=== PATIENT | male | born 1955 | race Hispanic/Latino ===

== ENCOUNTER 2018-01-16 10:56 | Emergency (ER) | payer MEDICAID, OTHER ==
[2018-01-16 11:31] VITALS: BMI 19.8
--- NOTE | 2018-01-16 11:41 | ED PDOC ---
Arrival/HPI - General Time Seen by Provider: 01/16/18 11:06 Historian: Patient, Police - History of Present Illness Narrative History of Present Illness (Text): 01/16/18 11:30 62 year old male, with no significant past medical history, was brought to the Emergency department by [facility] for medical clearance today. As per [facility], patient was asked to evacuate his apartment due to failure to pay rent however he was noncompliant with the notice. When [facility] arrived to escort patient out of the apartment, the patient appeared weak and frail and thus was brought to the ED for medical evaluation. Upon arrival to Emergency department, patient appears weak, cachectic and will not answer questions directly. Patient appeared to wear lose clothes indicating loss of weight from baseline. When asked about his history, patient informs buying new clothes 3 years ago and visiting a PMD 16 years ago. Patient currently denies any medical or psychiatric complaints. Patient denies any fever, chills, nausea, vomiting, diarrhea, abdominal pain, chest pain, shortness of breath or any other complaints. Patient denies any suicidal or homicidal ideation. Time/Duration: Prior to Arrival Symptom Onset: Gradual Activities at Onset: Light Context: Home Past Medical History - Provider Review Nursing Documentation Reviewed: Yes Family/Social History - Physician Review Nursing Documentation Reviewed: Yes Family/Social History: No Known Family HX Allergies/Home Meds Allergies/Adverse Reactions: Allergies No Known Allergies Allergy (Verified 01/16/18 12:32) Home Medications: Home Meds Medication Instructions Recorded Confirmed No Known Home Med 01/16/18 01/16/18 Review of Systems - Physician Review All systems were reviewed & negative as marked: Yes - Review of Systems Constitutional: Normal. absent: Fevers Eyes: Normal ENT: Normal Respiratory: Normal. absent: SOB Cardiovascular: Normal. absent: Chest Pain Gastrointestinal: Normal. absent: Abdominal Pain, Diarrhea, Nausea, Vomiting Genitourinary Male: Normal Musculoskeletal: Normal Skin: Normal Neurological: Normal Endocrine: Normal Hemo/Lymphatic: Normal Psychiatric: Normal Physical Exam Appearance: Positive for: Cachectic Pain Distress: None - Systems Exam Head: Present: Atraumatic, Normocephalic Pupils: Present: PERRL Extroacular Muscles: Present: EOMI Conjunctiva: Present: Normal Mouth: Present: Moist Mucous Membranes Neck: Present: Normal Range of Motion Respiratory/Chest: Present: Clear to Auscultation, Good Air Exchange. No: Respiratory Distress, Accessory Muscle Use Cardiovascular: Present: Regular Rate and Rhythm, Normal S1, S2. No: Murmurs Abdomen: No: Tenderness, Distention, Peritoneal Signs Back: Present: Normal Inspection Upper Extremity: Present: Normal Inspection. No: Cyanosis, Edema Lower Extremity: Present: Normal Inspection. No: Edema Neurological: Present: GCS=15, CN II-XII Intact, Speech Normal Skin: Present: Warm, Dry, Normal Color. No: Rashes Psychiatric: Present: Alert, Oriented x 3, Normal Insight, Normal Concentration Medical Decision Making ED Course and Treatment: 01/16/18 11:42 Impression: 62 year old male presents to the Emergency department for medical clearance. Plan: -- CT of Head -- Labs -- EKG -- Chest X-ray -- PES Evaluation -- Urinalysis -- Reassess and disposition Progress Notes: 01/16/18 11:57 CT of head reviewed by radiologist, shows: FINDINGS: HEMORRHAGE: No intracranial hemorrhage. BRAIN: No mass effect or edema. No atrophy or chronic microvascular ischemic changes. VENTRICLES: Unremarkable. No hydrocephalus. CALVARIUM: Unremarkable. PARANASAL SINUSES: Unremarkable as visualized. No significant inflammatory changes. MASTOID AIR CELLS: Unremarkable as visualized. No inflammatory changes. OTHER FINDINGS: None. IMPRESSION: No acute findings 01/16/18 13:02 Chest X-ray reviewed by radiologist, shows no active disease. 01/16/18 16:[address] to stay with his restorationism tonight and will get his new apartment tomorrow. Re-evaluation Time: 16:29 (Medically and psychologically cleared!) Reassessment Condition: Re-examined - Lab Interpretations Lab Results: 01/16/18 12:40 01/16/18 12:40 Lab Results 01/16/18 16:06: pO2 22 L, VBG pH 7.31 L, VBG pCO2 52.0, VBG HCO3 26.2, VBG Total CO2 27.8, VBG O2 Sat (Calc) 50.5, VBG Base Excess -0.8 L, VBG Potassium 4.5, Sodium 137.0, Chloride 107.0, Glucose 164 H, Lactate 1.2, FiO2 21.0, Venous Blood Potassium 4.5 01/16/18 13:20: Ammonia < 9 L 01/16/18 12:40: pO2 35, VBG pH 7.30 L, VBG pCO2 46.0, VBG HCO3 22.6, VBG Total CO2 24.0, VBG O2 Sat (Calc) 71.5 H, VBG Base Excess -4.0 L, VBG Potassium 4.8, Sodium 136.0, Chloride 101.0, Glucose 166 H, Lactate 2.3 H, FiO2 21.0, Venous Blood Potassium 4.8 01/16/18 12:40: Alcohol, Quantitative < 10 01/16/18 12:40: Sodium 141, Chloride 99, Potassium 4.9, Carbon Dioxide 22, Anion Gap 25 H, BUN 14, Creatinine 0.8, Est GFR ( Amer) > 60, Est GFR ( Non-Af Amer) > 60, Random Glucose 151 H, Calcium 9.8, Total Bilirubin 0.8, Direct Bilirubin 0.2, AST 12 L, ALT 15, Alkaline Phosphatase 58, Lactate Dehydrogenase 265 L, Total Creatine Kinase 31 L, Troponin I < 0.01, Total Protein 7.5, Albumin 4.6, Globulin 2.9, Albumin/Globulin Ratio 1.6 01/16/18 12:40: PT 12.7 H, INR 1.07 01/16/18 12:40: WBC 7.7, RBC 4.75, Hgb 15.0, Hct 43.4, MCV 91.4, MCH 31.6, MCHC 34.6, RDW 13.4, Plt Count 284, MPV 10.3, Gran % 73.2 H, Lymph % (Auto) 17.6 L, [place] % (Auto) 8.6 H, Eos % (Auto) 0.1 L, Baso % (Auto) 0.5, Gran # 5.61, Lymph # (Auto) 1.4, [place] # (Auto) 0.7 H, Eos # (Auto) 0.0, Baso # (Auto) 0.04 - RAD Interpretation Radiology Orders: 01/16/18 11:27 HEAD W/O CONTRAST [CT] Stat CHEST PORTABLE [RAD] Stat Engineering Teacher: Radiologist - Medication Orders Current Medication Orders: Discontinued Medications Sodium Chloride (Sodium Chloride 0.9%) 1,000 mls @ 999 mls/hr IV .Q1H1M STA Stop: 01/16/18 14:10 Last Admin: 01/16/18 13:17 Dose: 999 mls/hr eMAR Start Stop Document 01/16/18 13:17 OCS (Rec: 01/16/18 13:17 OCS [email or web address] Intravenous Solution Start Date 01/16/18 Start Time 13:17 End Date 01/16/18 End time 14:17 Total Infusion Time 60 Sodium Chloride (Sodium Chloride 0.9%) 2,000 mls @ 999 mls/hr IV .Q2H1M STA Stop: 01/16/18 15:14 Last Admin: 01/16/18 13:17 Dose: 999 mls/hr eMAR Start Stop Document 01/16/18 13:17 OCS (Rec: 01/16/18 13:17 [facility]CS [email or web address] Intravenous Solution Start Date 01/16/18 Start Time 13:17 End Date 01/16/18 End time 14:17 Total Infusion Time 60 - Scribe Statement The provider has reviewed the documentation as recorded by the Scribe Buffy Gonzalez. All medical record entries made by the Scribe were at my direction and personally dictated by me. I have reviewed the chart and agree that the record accurately reflects my personal performance of the history, physical exam, medical decision making, and the department course for this patient. I have also personally directed, reviewed, and agree with the discharge instructions and disposition. Disposition/Present on Arrival - Present on Arrival Any Indicators Present on Arrival: No History of DVT/PE: No History of Uncontrolled Diabetes: No Urinary Catheter: No History of Decub. Ulcer: No History Surgical Site Infection Following: None - Disposition Have Diagnosis and Disposition been Completed?: Yes Diagnosis: Debility, unspecified Disposition: HOME/ ROUTINE Disposition Time: 16:34 Patient Plan: Discharge Condition: GOOD Discharge Instructions (ExitCare): Generalized Weakness (DC) Additional Instructions: Mr Harris - Please go directly to your restorationism. Return to us if any problems. Angel- Dr. Jonatan Samano
--- NOTE | 2018-01-16 11:51 | CT ---
PROCEDURE: CT HEAD WITHOUT CONTRAST. HISTORY: MEDICAL CLEARANCE COMPARISON: None available. TECHNIQUE: Axial computed tomography images were obtained through the head/brain without intravenous contrast. Radiation dose: Total exam DLP = 938 mGy-cm. This CT exam was performed using one or more of the following dose reduction techniques: Automated exposure control, adjustment of the mA and/or kV according to patient size, and/or use of iterative reconstruction technique. FINDINGS: HEMORRHAGE: No intracranial hemorrhage. BRAIN: No mass effect or edema. No atrophy or chronic microvascular ischemic changes. VENTRICLES: Unremarkable. No hydrocephalus. CALVARIUM: Unremarkable. PARANASAL SINUSES: Unremarkable as visualized. No significant inflammatory changes. MASTOID AIR CELLS: Unremarkable as visualized. No inflammatory changes. OTHER FINDINGS: None. IMPRESSION: No acute findings
--- NOTE | 2018-01-16 12:41 | RAD ---
HISTORY: MEDICAL CLEARANCE COMPARISON: No prior. FINDINGS: LUNGS: No active pulmonary disease. PLEURA: No significant pleural effusion identified, no pneumothorax apparent. CARDIOVASCULAR: Normal. OSSEOUS STRUCTURES: No significant abnormalities. VISUALIZED UPPER ABDOMEN: Normal. OTHER FINDINGS: None. IMPRESSION: No active disease.
[2018-01-16 13:00] LABS: VENOUS BLOOD GAS PO2 35 mm/Hg (30-55)
[2018-01-16 13:03] LABS: BASO # 0.04 K/mm3 (0.0-2.0); BASO % 0.5 % (0.0-3.0); EOS % 0.1 % (1.5-5.0); GRAN # 5.61 (1.4-6.5); GRAN % 73.2 % (50.0-68.0); LYMPH # 1.4 (1.2-3.4); LYMPH % 17.6 % (22.0-35.0); MEAN CELL VOLUME 91.4 fl (80.0-105.0); MEAN CORPUSCULAR HEMOGLOBIN 31.6 pg (25.0-35.0); MEAN CORPUSCULAR HGB CONC 34.6 g/dl (31.0-37.0); MEAN PLATELET VOLUME 10.3 fl (7.0-11.0); MONO # 0.7 (0.1-0.6); MONO % 8.6 % (1.0-6.0); RBC 4.75 10^6/uL (3.5-6.1); RED CELL DISTRIBUTION WIDTH 13.4 % (11.5-14.5); WHITE BLOOD COUNT 7.7 10^3/ul (4.5-11.0)
[2018-01-16 13:05] LABS: INR 1.07 (0.93-1.08); PROTHROMBIN TIME 12.7 SECONDS (9.4-12.5)
[2018-01-16 13:10] LABS: ALB/GLOB RATIO 1.6 (1.1-1.8); ALBUMIN 4.6 g/dL (3.0-4.8); ALT/SGPT 15 U/L (7-56); AST/SGOT 12 U/L (17-59); BILIRUBIN,DIRECT 0.2 mg/dL (0.0-0.4); BLOOD UREA NITROGEN 14 mg/dL (7-21); CALCIUM 9.8 mg/dL (8.4-10.5); GFR AFRICAN-AMERICAN > 60; GFR NON-AFRICAN AMERICAN > 60
[2018-01-16] MEDS ORDERED: Sodium Chloride 0.9% 1,000 ML IV STA (13:10)
[2018-01-16] MEDS ORDERED: Sodium Chloride 0.9% 2,000 ML IV STA (13:14)
[2018-01-16 13:20] LABS: TROPONIN I < 0.01 ng/mL
[2018-01-16 16:15] LABS: VENOUS BLOOD GAS BASE EXCESS -0.8 mmol/L (0.0-2.0); VENOUS BLOOD GAS PO2 22 mm/Hg (30-55); VENOUS BLOOD PH 7.31 (7.32-7.43)
--- NOTE | 2018-01-16 16:23 | CARD ---
APPROVED REPORT EKG Measurement Heart [id number] <Conclusion> Normal sinus rhythm Right bundle branch block
[2018-01-16 16:46] VITALS: BP 125/78; PULSE 84; RESP 18; TEMP 98.5; O2SAT 100
== END 2018-01-16 18:24 | disposition home or self-care (01) ==
LOC: ED 10:56
DX: R53.81 Other malaise (principal)
CPT/HCPCS: 70450; 71045; 80053; 82140; 82248; 82550; 82803; 83615; 84484; 85025; 85610; 90791; 93005; 96360; 99282; G0480; J7030